=== PATIENT | female | born 1995 | race Caucasian/White ===

== ENCOUNTER 2021-08-20 13:02 | Emergency (ER) | payer OTHER ==
[2021-08-20 14:31] VITALS: BP 114/69; PULSE 77; TEMP 97.8; BMI 24.2
[2021-08-20] MEDS ORDERED: KETOROLAC TROMETHAMINE 30 MG/1 ML VIAL IM ONE (14:46)
[2021-08-20] MEDS ORDERED: KETOROLAC TROMETHAMINE 30 MG/1 ML VIAL ONE (14:47)
== END 2021-08-20 16:00 | disposition home or self-care (01) ==
LOC: JER 13:02
PROC: 3E0233Z Introduction of Anti-inflammatory into Muscle, Percutaneous Approach (ICD-10-PCS; principal; 2021-08-20)
DX: S13.4XXA Sprain of ligaments of cervical spine, initial encounter (principal); V89.2XXA Person injured in unspecified motor-vehicle accident, traffic, initial encounter; Y92.9 Unspecified place or not applicable
CPT/HCPCS: 99283-25